=== PATIENT | female | born 1975 | race Caucasian/White ===

== ENCOUNTER 2016-09-13 17:50 | Emergency (ER) | payer MEDICARE, MEDICAID ==
--- NOTE | 2016-09-13 19:13 | ERRECORD ---
[facility] EMERGENCY RECORD PAST MEDICAL HISTORY (18:00 SFRE) MEDICAL HISTORY: Notes: RECENT DX OF PITUITARY TUMOR., HEP C, Past medical history includes pulmonary disease, chronic bronchitis. FEMALE SURGICAL HISTORY: SURGERIES: CLEFT PALATE REPAIRS, RIGHT INGUINAL HERNIA REPAIR, 3 C-SECTIONS, 3 D<LT>AMP>C'S X 2, LAP-YARIEL, BILAT TUBAL LIGATION, RIGHT ROTATOR CUFF REPAIR. PSYCHIATRIC HISTORY: Psychiatric history includes previous inpatient psychiatric admissions, Date of last admission: 2007, Facility: [facility], Notes: ADHD, BIPOLAR WITH PSYCHOSIS, ANXIETY, BORDERLINE PERSONALITY DISORDER, ANTISOCIAL DISORDER. SOCIAL HISTORY: Patient denies alcohol use, Patient is a former drug user, abused cocaine, Patient currently uses tobacco, smokes cigarettes, daily, Patient has smoked for 25 years, Patient smokes 1/2 packs per day, Lives at home, alone. KNOWN ALLERGIES Penicillins Sulfa (Sulfonamide Antibiotics): - Entered category: Sulfa (Sulfonamide Antibiotics) -- Entered category: Sulfa (Sulfonamide Antibiotics) -- Entered category: Sulfa (Sulfonamide Antibiotics) -- Entered category: Sulfa (Sulfonamide Antibiotics) -- Entered category: Sulfa (Sulfonamide Antibi CURRENT MEDICATIONS (17:59 SFRE) Trilafon: TABLET : Strength - 2 mg : ORAL Patient Dose: 4 mg Oral once a day. clonazePAM: TABLET : Strength - 1 mg : ORAL Patient Dose: 1 tab(s) Oral 3 times a day. Abilify: TABLET : Strength - 15 mg : ORAL Patient Dose: 15 mg Oral 2 times a day. LaMICtal: TABLET : Strength - 200 mg : ORAL Patient Dose: 200 mg Oral 2 times a day. Adderall: TABLET : Strength - 30 mg : ORAL Patient Dose: 30 mg Oral 2 times a day. omeprazole: CAPSULE,DELAYED RELEASE (ENTERIC COATED) : Strength - 20 mg : ORAL Patient Dose: 40 mg Oral 2 times a day. [place]: TABLET : Strength - 10 mg-325 mg : ORAL Patient Dose: 1 tab(s) Oral 3 times a day. VITAL SIGNS (17:56 SFRE) VITAL SIGNS: BP: 130/92, Pulse: 100 (Regular), Resp: 18 &a-1R&a+25V*p+0X*j6863Q*c202B*c15G*c2P*p-0X&a-25V&a+1R Name: Isabel Pete : 1975 F41 MedRec: [id number] AcctNum: [id number] Prepared: MonSep 13, 2016 20:56 by Interface Page 1 of 2 pMD [facility] EMERGENCY RECORD (Non-Labored), Temp: 98.7 (Tympanic), Pain: 8 (Pressure), O2 sat: 100 on Room Air, Time: 09/13/2016 17:56. DOCTOR NOTES (18:42 ABUS) TEXT: Pt left the ER without being seen. I never saw the pt. We could not locate her when I tried to go see her. PROBLEM LIST No recorded problems DIAGNOSIS (19:07 ROBERTO) FINAL: PRIMARY: NONE. PRESCRIPTION No recorded prescriptions DISPOSITION (19:07 MDNAYELI) PATIENT: Disposition Type: Eloped, Disposition: Left Without Being Seen, Patient left the department. Brunson: ALVERTO=MD Ricky, Ezra MEJIA=WES Muro, Mariola RODRIGUEZ=WES Steele, Yareli &a-1R&a+25V*p+0X*[id number]*c202B*c15G*c2P*p-0X&a-25V&a+1R Name: Isabel Pete : 1975 F41 MedRec: [id number] AcctNum: [id number] Prepared: MonSep 13, 2016 20:56 by Interface Page 2 of 2 pMD MTDD
--- NOTE | 2016-09-13 19:20 | PICIS ---
[facility] EMERGENCY RECORD TRIAGE (MonSep 13, 2016 17:58 SFRE) TRIAGE NOTES: HAS PITUITARY GLAND TUMOR AND CAUSES ME HEADACHES AND MY DR WON'T LET ME TAKE IBPROFEN, TYLENOL, AND SHE CAN'T CANT TAKE T3. (MonSep 13, 2016 17:58 SFRE) PATIENT: NAME: Isabel Pete, AGE: 41, GENDER: female, : Mon1975, TIME OF GREET: MonSep 13, 2016 17:51, PREFERRED LANGUAGE: Lao, ETHNICITY: Not or , FALL RISK: NO, ECODE BILLING MAP: [facility], SSN: [id number], Zip Code: [address], KG WEIGHT: 65.77, PHONE: CELL, , , PERSON ID: [id number], PCP: DO Hastings Anthony. (MonSep 13, 2016 17:58 SFRE) COMPLAINT: HEADACHE. (MonSep 13, 2016 17:58 SFRE) ADMISSION: URGENCY: 4 Non Urgent, ADMISSION SOURCE: Home, TRANSPORT: Walk-in, BED: ED -03. (MonSep 13, 2016 17:58 SFRE) IMMUNIZATIONS: Flu vaccine not up to date. (18:00 SFRE) SIRS SCORING: Heart Rate 55-109 (0), Temp range 96.8-101.1 (0), respiratory rate 12-24 (0), Mental Status altered: no (0). (18:00 SFRE) TRIAGE SCREENING: Patient denies suicidal ideation, Patient denies presence of domestic violence. (18:00 SFRE) PROVIDERS: TRIAGE NURSE: Yareli Steele RN. (MonSep 13, 2016 17:58 SFRE) VITAL SIGNS: BP 130/92, Pulse 100, (Regular), Resp 18, (Non-Labored), Temp 98.7, (Tympanic), Pain 8, (Pressure), O2 Sat 100, on Room Air, Time 09/13/2016 17:56. (17:56 SFRE) PREVIOUS VISIT ALLERGIES: Penicillins, Sulfa (Sulfonamide Antibiotics). (MonSep 13, 2016 17:58 SFRE) Penicillins, Sulfa (Sulfonamide Antibiotics). (18:00 SFRE) KNOWN ALLERGIES Penicillins Sulfa (Sulfonamide Antibiotics): - Entered category: Sulfa (Sulfonamide Antibiotics) -- Entered category: Sulfa (Sulfonamide Antibiotics) -- Entered category: Sulfa (Sulfonamide Antibiotics) -- Entered category: Sulfa (Sulfonamide Antibiotics) -- Entered category: Sulfa (Sulfonamide Antibi CURRENT MEDICATIONS (17:59 SFRE) Trilafon: TABLET : Strength - 2 mg : ORAL Patient Dose: 4 mg Oral once a day. clonazePAM: TABLET : Strength - 1 mg : ORAL Patient Dose: 1 tab(s) Oral 3 times a day. Abilify: TABLET : Strength - 15 mg : ORAL Patient Dose: 15 mg Oral 2 times a day. LaMICtal: TABLET : Strength - 200 mg : ORAL Patient Dose: 200 mg Oral 2 times a day. &a-1R&a+25V*p+0X*l5519V*c202B*c15G*c2P*p-0X&a-25V&a+1R Name: Juan RIsabel Kimo : 1975 F41 MedRec: [id number] AcctNum: [id number] Prepared: tarsha Sep 13, 2016 21:03 by Interface Page 1 of 3 pMD [facility] EMERGENCY RECORD Adderall: TABLET : Strength - 30 mg : ORAL Patient Dose: 30 mg Oral 2 times a day. omeprazole: CAPSULE,DELAYED RELEASE (ENTERIC COATED) : Strength - 20 mg : ORAL Patient Dose: 40 mg Oral 2 times a day. [place]: TABLET : Strength - 10 mg-325 mg : ORAL Patient Dose: 1 tab(s) Oral 3 times a day. VITAL SIGNS (17:56 SFRE) VITAL SIGNS: BP: 130/92, Pulse: 100 (Regular), Resp: 18 (Non-Labored), Temp: 98.7 (Tympanic), Pain: 8 (Pressure), O2 sat: 100 on Room Air, Time: 09/13/2016 17:56. NURSING PROCEDURE: NURSE NOTES (18:46 SFRE) NURSES NOTES: Notes: PATIENT APPARENTLY LEFT AMA. PAST MEDICAL HISTORY (18:00 SFRE) MEDICAL HISTORY: Notes: RECENT DX OF PITUITARY TUMOR., HEP C, Past medical history includes pulmonary disease, chronic bronchitis. FEMALE SURGICAL HISTORY: SURGERIES: CLEFT PALATE REPAIRS, RIGHT INGUINAL HERNIA REPAIR, 3 C-SECTIONS, 3 D<LT>AMP>C'S X 2, LAP-YARIEL, BILAT TUBAL LIGATION, RIGHT ROTATOR CUFF REPAIR. PSYCHIATRIC HISTORY: Psychiatric history includes previous inpatient psychiatric admissions, Date of last admission: 2007, Facility: [facility], Notes: ADHD, BIPOLAR WITH PSYCHOSIS, ANXIETY, BORDERLINE PERSONALITY DISORDER, ANTISOCIAL DISORDER. SOCIAL HISTORY: Patient denies alcohol use, Patient is a former drug user, abused cocaine, Patient currently uses tobacco, smokes cigarettes, daily, Patient has smoked for 25 years, Patient smokes 1/2 packs per day, Lives at home, alone. EVENTS TRANSFER: Triage to Emergency Main ED -03. (MonSep 13, 2016 17:58 SFRE) Emergency Main ED -03 to -H01. (18:18 MDEB) Emergency Main ED -H01 to Holding. (18:48 SFRE) Emergency Main ED -H01 to Holding. (18:48 SFRE) Emergency Holding to Waiting. (18:48 SFRE) Removed from Emergency Waiting. (19:07 ROBERTO) DOCTOR NOTES (18:42 ABUS) TEXT: Pt left the ER without being seen. I never saw the pt. We could not locate her when I tried to go see her. PROBLEM LIST No recorded problems &a-1R&a+25V*p+0X*p7109Q*c202B*c15G*c2P*p-0X&a-25V&a+1R Name: Isabel Pete : 1975 F41 MedRec: [id number] AcctNum: [id number] Prepared: MonSep 13, 2016 21:03 by Interface Page 2 of 3 pMD [facility] EMERGENCY RECORD DIAGNOSIS (19:07 ROBERTO) FINAL: PRIMARY: NONE. DISPOSITION (19:07 ROBERTO) PATIENT: Disposition Type: Eloped, Disposition: Left Without Being Seen, Patient left the department. PRESCRIPTION No recorded prescriptions IMAGING (19:52 ADEA) *SUPPLY CHARGE SHEET: Image captured from scanner. ADMIN (20:50 ABUS) DIGITAL SIGNATURE: MD García Anthony. Brunson: ALVERTO=MD García Anthony ADEA=Darinel RN, Faisal MEJIA=WES Muro, Mariola RODRIGUEZ=WES Steele, Yareli &a-1R&a+25V*p+0X*z5607M*c202B*c15G*c2P*p-0X&a-25V&a+1R Name: Isabel Pete : 1975 F41 MedRec: [id number] AcctNum: [id number] Prepared: Jocelyn Sep 13, 2016 21:03 by Interface Page 3 of 3 pMD MTDD
== END 2016-09-13 18:15 | disposition left against medical advice (07) ==
LOC: MADERS 17:50
DX: Z53.21 Procedure and treatment not carried out due to patient leaving prior to being seen by health care provider (principal)

== ENCOUNTER 2016-12-02 10:51 | Emergency (ER) | payer MEDICARE, MEDICAID ==
[~2016-12-02 10:51] MED LIST: Donnatal Elixir 16.2 MG/5 ML UDCUP ONE
[2016-12-02] MEDS ORDERED: Lidocaine Viscous Sol 2% 15 ml UD Cup ONE (11:39)
[2016-12-02] MEDS ORDERED: Donnatal Elixir 16.2 MG/5 ML UDCUP ONE (11:39)
[2016-12-02] MEDS ORDERED: Mag-Al Plus 1200 MG/1200 MG/120 MG/30 ML UDCUP ONE (11:39)
[2016-12-02] MEDS ORDERED: Ondansetron ODT 4 MG TAB ONE (11:40)
== END 2016-12-02 12:55 | disposition home or self-care (01) ==
LOC: MADERS 10:51
DX: G44.209 Tension-type headache, unspecified, not intractable (principal); K21.9 Gastro-esophageal reflux disease without esophagitis; M26.609 Unspecified temporomandibular joint disorder, unspecified side; F31.9 Bipolar disorder, unspecified; F41.9 Anxiety disorder, unspecified; F90.9 Attention-deficit hyperactivity disorder, unspecified type; F17.210 Nicotine dependence, cigarettes, uncomplicated
CPT/HCPCS: 84484; 93005; Q0162

== ENCOUNTER 2016-12-17 15:31 | Emergency (ER) | payer MEDICARE, MEDICAID ==
[2016-12-17] MEDS ORDERED: Acetaminophen/Codeine 30-300mg Tablet ONE (16:05)
[2016-12-17] MEDS ORDERED: Mag-Al Plus 1200 MG/1200 MG/120 MG/30 ML UDCUP ONE (16:06)
[2016-12-17] MEDS ORDERED: Lidocaine Viscous Sol 2% 15 ml UD Cup ONE (16:06)
[2016-12-17] MEDS ORDERED: Donnatal Elixir 16.2 MG/5 ML UDCUP ONE (16:06)
[2016-12-17] MEDS ORDERED: Fluconazole 100 MG TAB ONE (16:06)
[2016-12-17] MEDS ORDERED: Ondansetron ODT 4 MG TAB ONE (16:06)
--- NOTE | 2016-12-17 16:30 | RAD ---
EXAM: RIGHT HAND THREE VIEWS: 12/17/16 HISTORY: Injury. Pain. COMPARISON: None. FINDINGS: There is a nondisplaced fracture involving the base of the fifth metacarpal. Joint spaces are prese rved. IMPRESSION: 1. Fracture involving the base of the fifth metacarpal. POS: [facility]
[2016-12-17 17:00] LABS: Prothrombin Time 13.9 SEC (12.0-14.7)
[2016-12-17 17:07] LABS: Amphetamine Not Detected (NotDetected); Barbiturates Screen Detected (NotDetected); Benzodiazepine Screen Not Detected (NotDetected); Cocaine Metabolite Screen Detected (NotDetected); Medtox Control Line Valid? VALID (VALID); Methadone Not Detected (NotDetected); Methamphetamine Not Detected (NotDetected); Opiate Screen Not Detected (NotDetected); Oxycodone Screen Not Detected (NotDetected); Phencyclidine (PCP) Not Detected (NotDetected); THC/Cannabinoid Screen Not Detected (NotDetected); Tricyclic Screen Not Detected (NotDetected)
[2016-12-17 17:09] LABS: #Lymphocytes 1.6 thou/uL (1.20-3.40); #Monocytes 0.5 thou/uL (0.11-0.59); #Neutrophils 5.5 thou/uL (1.40-6.50); %Basophils 0.5 % (0.0-1.0); %Eosinophils 0.1 % (0.0-10.0); %Lymphocytes 20.7 % (21.0-51.0); %Monocytes 6.9 % (0.0-10.0); %Neutrophils 71.8 % (42.0-75.0); Hemoglobin 11.2 g/dL (12.0-16.0); Mean Corpuscular HGB CONC 32.2 g/dL (32.0-36.0); Mean Corpuscular Hemoglobin 23.5 pg (27.0-31.0); Mean Corpuscular Volume 73.1 fl (81.0-99.0); Mean Platelet Volume 7.5 fL (7.4-10.4); Platelet Count 330 thou/uL (130-400); RBC Distribution Width 15.5 % (11.5-14.5); Red Blood Cell (RBC) Count 4.75 mill/uL (4.20-5.40); White Blood Cell (WBC) Count 7.7 thou/uL (4.8-10.8)
[2016-12-17 17:10] LABS: Alcohol Less than 10 mg/dL (Less than 10); Lipase 14 U/L (8-78); Salicylate Less than 5.0 mg/dL (15.0-30.0)
[2016-12-17 17:11] LABS: Anisocytosis MODERATE=16-30 cells (100X) (0-5/hpf); Hypochromia SLIGHT = 6-15 cells (100X) (0-5/hpf); Microcytosis MODERATE=15-30 cells (100X) (0-5/hpf)
[2016-12-17 17:12] LABS: ALT (SGPT) 38 U/L (0-55); AST (SGOT) 27 U/L (5-34); Albumin 4.5 g/dL (3.5-5.0); Alkaline Phosphatase 80 U/L (40-150); Anion Gap 15 mmol/L (10-20); BUN (Urea Nitrogen) 7 mg/dL (7.0-18.7); Bilirubin, Total 0.4 mg/dL (0.2-1.2); Calc. Creatinine Clearance 0 mL/min (70-130); Calcium 9.4 mg/dL (7.8-10.44); Carbon Dioxide 20 mmol/L (22-29); Chloride 109 mmol/L (98-107); Estimated GFR-MDRD 86; Globulin 2.5 g/dL (2.4-3.5); Glucose 116 mg/dL (70-105); Potassium 3.3 mmol/L (3.5-5.1); Sodium 141 mmol/L (136-145)
[2016-12-17] MEDS ORDERED: Ketorolac Tromethamine 60 MG/2 ML VIAL ONE (17:28)
[2016-12-17] MEDS ORDERED: Promethazine HCl 25 MG/ML VIAL ONE (17:28)
== END 2016-12-17 18:35 | disposition home or self-care (01) ==
LOC: MADERS 15:31
DX: S62.346A Nondisplaced fracture of base of fifth metacarpal bone, right hand, initial encounter for closed fracture (principal); N39.0 Urinary tract infection, site not specified; B37.3 Candidiasis of vulva and vagina; F17.210 Nicotine dependence, cigarettes, uncomplicated; Z79.899 Other long term (current) drug therapy; X58.XXXA Exposure to other specified factors, initial encounter
CPT/HCPCS: 36415; 51701; 80053; 80306; 80307; 83690; 85025; 85610; 87086; 96372; A4353; J1885; J2550; Q0162

== ENCOUNTER 2016-12-26 16:35 | Emergency (ER) | payer MEDICARE, MEDICAID | END 2016-12-26 18:15 | disposition left against medical advice (07) | LOC: MADERS 16:35 | DX: Z53.21 Procedure and treatment not carried out due to patient leaving prior to being seen by health care provider (principal) ==

== ENCOUNTER 2017-01-31 11:26 | Emergency (ER) | payer MEDICARE, MEDICAID | END 2017-01-31 12:50 | disposition home or self-care (01) | LOC: MADERS 11:26 | DX: J34.9 Unspecified disorder of nose and nasal sinuses (principal); F17.210 Nicotine dependence, cigarettes, uncomplicated | CPT/HCPCS: 99283 ==

== ENCOUNTER 2017-04-17 09:41 | Emergency (ER) | payer MEDICARE, OTHER ==
[2017-04-17 11:02] LABS: INR-International Normal Ratio 0.9; PTT 32.8 SEC (22.9-36.1); Prothrombin Time 12.1 SEC (12.0-14.7)
--- NOTE | 2017-04-17 11:07 | RAD ---
1 VIEW CHEST: Date: 04/17/17 COMPARISON: 06/18/05. HISTORY: Altered mental status. FINDINGS: Normal cardiac silhouette. Pulmonary vessels and hilum are normal. No masses or consolidation. No pn eumothorax or osseous abnormalities. IMPRESSION: No acute cardiopulmonary process. POS: [facility]
[2017-04-17 11:09] LABS: Bilirubin Negative (Negative); Blood, Urine Negative (Negative); Clarity Clear (Clear); Glucose, Urine (Dipstick) Negative (Negative); Leukocyte Negative (Negative); Nitrite Negative (Negative); Protein, Urine (Dipstick) Negative (Neg-Trace); Urobilinogen 0.2 mg/dL (0.2-1.0)
[2017-04-17 11:11] LABS: ALT (SGPT) 146 U/L (8-55); AST (SGOT) 57 U/L (5-34); Albumin 4.5 g/dL (3.5-5.0); Alkaline Phosphatase 86 U/L (40-150); Anion Gap 13 mmol/L (10-20); BUN (Urea Nitrogen) 17 mg/dL (7.0-18.7); Bilirubin, Total 0.3 mg/dL (0.2-1.2); Calc. Creatinine Clearance 0 mL/min (70-130); Calcium 9.9 mg/dL (7.8-10.44); Carbon Dioxide 23 mmol/L (22-29); Chloride 106 mmol/L (98-107); Estimated GFR-MDRD 83; Globulin 3.3 g/dL (2.4-3.5); Glucose 90 mg/dL (70-105); Potassium 4.1 mmol/L (3.5-5.1); Protein, Total 7.8 g/dL (6.0-8.3); Sodium 138 mmol/L (136-145)
[2017-04-17 11:12] LABS: Bacteria/HPF Rare-Few HPF (None Seen); RBC/HPF 0-3 HPF (0-3); WBC/HPF 0-3 HPF (0-3)
[2017-04-17 11:12] LABS: Acetaminophen Less than 6.0 mcg/mL (10.0-30.0); Alcohol Less than 10 mg/dL (Less than 10); Salicylate Less than 8.0 mg/dL (15.0-30.0)
[2017-04-17 11:12] LABS: #Basophils 0.1 thou/uL (0.0-0.2); #Lymphocytes 1.6 thou/uL (1.20-3.40); #Monocytes 0.4 thou/uL (0.11-0.59); %Basophils 1.1 % (0.0-1.0); %Eosinophils 0.1 % (0.0-10.0); %Lymphocytes 22.9 % (21.0-51.0); %Monocytes 5.2 % (0.0-10.0); %Neutrophils 70.8 % (42.0-75.0); Anisocytosis SLIGHT = 6-15 cells (100X) (0-5/hpf); Hemoglobin 14.1 g/dL (12.0-16.0); Large Platelets SLIGHT; MDiff Complete? YES; Mean Corpuscular HGB CONC 30.8 g/dL (32.0-36.0); Mean Corpuscular Hemoglobin 24.8 pg (27.0-31.0); Mean Corpuscular Volume 80.3 fl (81.0-99.0); Mean Platelet Volume 7.6 fL (7.4-10.4); PLT Morphology Comment Appears Adequate; Platelet Count 258 thou/uL (130-400); Red Blood Cell (RBC) Count 5.68 mill/uL (4.20-5.40); White Blood Cell (WBC) Count 7.1 thou/uL (4.8-10.8)
[2017-04-17 11:16] LABS: Cocaine Metabolite Screen Detected (NotDetected); Phencyclidine (PCP) Not Detected (NotDetected); THC/Cannabinoid Screen Not Detected (NotDetected)
[2017-04-17 11:17] LABS: Amphetamine Not Detected (NotDetected); Barbiturates Screen Not Detected (NotDetected); Benzodiazepine Screen Not Detected (NotDetected); Medtox Control Line Valid? VALID (VALID); Methadone Not Detected (NotDetected); Methamphetamine Not Detected (NotDetected); Opiate Screen Not Detected (NotDetected); Oxycodone Screen Not Detected (NotDetected); Tricyclic Screen Not Detected (NotDetected)
== END 2017-04-17 12:20 | disposition left against medical advice (07) ==
LOC: MADERS 09:41
DX: F22 Delusional disorders (principal); F90.9 Attention-deficit hyperactivity disorder, unspecified type; J42 Unspecified chronic bronchitis; F31.9 Bipolar disorder, unspecified; F41.9 Anxiety disorder, unspecified; F17.210 Nicotine dependence, cigarettes, uncomplicated
CPT/HCPCS: 36415; 71010; 80053; 80306; 80307; 81001; 83880; 84443; 85025; 85610; 85730; 87086; 93005

== ENCOUNTER 2017-05-14 13:50 | Emergency (ER) | payer MEDICARE, MEDICAID | END 2017-05-14 14:30 | disposition home or self-care (01) | LOC: MADERS 13:50 | DX: L03.317 Cellulitis of buttock (principal); F90.9 Attention-deficit hyperactivity disorder, unspecified type; F41.9 Anxiety disorder, unspecified; F31.9 Bipolar disorder, unspecified; F17.210 Nicotine dependence, cigarettes, uncomplicated; J42 Unspecified chronic bronchitis; Z79.899 Other long term (current) drug therapy | CPT/HCPCS: 99283 ==

== ENCOUNTER 2017-05-20 01:39 | Emergency (ER) | payer OTHER, MEDICARE, MEDICAID ==
[2017-05-20 02:40] LABS: BHCG - Serum Negative (NEGATIVE); Pregs Control Background? CLEAR/WHITE (CLR/WHITE); Pregs Control Bar Appear? YES (CONTROL BAR)
[2017-05-20 02:42] LABS: ALT (SGPT) 40 U/L (8-55); AST (SGOT) 21 U/L (5-34); Albumin 4.3 g/dL (3.5-5.0); Alkaline Phosphatase 93 U/L (40-150); Anion Gap 14 mmol/L (10-20); BUN (Urea Nitrogen) 12 mg/dL (7.0-18.7); Bilirubin, Total 0.4 mg/dL (0.2-1.2); Calc. Creatinine Clearance 0 mL/min (70-130); Calcium 9.4 mg/dL (7.8-10.44); Carbon Dioxide 24 mmol/L (22-29); Chloride 108 mmol/L (98-107); Estimated GFR-MDRD 83; Globulin 2.9 g/dL (2.4-3.5); Glucose 105 mg/dL (70-105); Lipase 15 U/L (8-78); Potassium 3.8 mmol/L (3.5-5.1); Protein, Total 7.2 g/dL (6.0-8.3); Sodium 142 mmol/L (136-145)
[2017-05-20 02:46] LABS: #Basophils 0.1 thou/uL (0.0-0.2); #Monocytes 0.4 thou/uL (0.11-0.59); #Neutrophils 6.1 thou/uL (1.40-6.50); %Basophils 0.7 % (0.0-1.0); %Eosinophils 0.1 % (0.0-10.0); %Lymphocytes 22.9 % (21.0-51.0); %Monocytes 5.2 % (0.0-10.0); %Neutrophils 71.1 % (42.0-75.0); Hemoglobin 13.3 g/dL (12.0-16.0); Mean Corpuscular HGB CONC 32.1 g/dL (32.0-36.0); Mean Corpuscular Hemoglobin 27.1 pg (27.0-31.0); Mean Corpuscular Volume 84.4 fl (81.0-99.0); Mean Platelet Volume 6.8 fL (7.4-10.4); Platelet Count 266 thou/uL (130-400); RBC Distribution Width 20.2 % (11.5-14.5); Red Blood Cell (RBC) Count 4.92 mill/uL (4.20-5.40); White Blood Cell (WBC) Count 8.6 thou/uL (4.8-10.8)
[2017-05-20 02:47] LABS: Anisocytosis SLIGHT = 6-15 cells (100X) (0-5/hpf); MDiff Complete? YES; Microcytosis SLIGHT = 6-15 cells (100X) (0-5/hpf); PLT Morphology Comment Appears Adequate; Poikilocytosis SLIGHT = 6-15 cells (100X) (0-5/hpf)
--- NOTE | 2017-05-20 08:44 | RAD ---
RADIOGRAPH CHEST 1 VIEW RADIOGRAPH ABDOMEN 2 VIEWS: HISTORY: 41-year-old female with abdominal pain. FINDINGS: There are no air space densities or pulmonary edema. The lateral costophrenic angles are sharp. Ther e is no cardiomegaly. There is no evidence of pneumothorax or pneumoperitoneum. There is no evidence of dilated small bowel loops, differential air/fluid levels, or organomegaly. IMPRESSION: 1. No acute cardiopulmonary findings. 2. No evidence of bowel obstruction. jn [] POS: [facility]
== END 2017-05-20 02:53 ==
LOC: MADERS 01:39
DX: R14.0 Abdominal distension (gaseous) (principal); R10.12 Left upper quadrant pain; F90.9 Attention-deficit hyperactivity disorder, unspecified type; F41.9 Anxiety disorder, unspecified; F31.9 Bipolar disorder, unspecified; F17.210 Nicotine dependence, cigarettes, uncomplicated; Z79.899 Other long term (current) drug therapy
CPT/HCPCS: 36415; 74022; 80053; 83690; 84703; 85025

== ENCOUNTER 2017-06-11 10:18 | Emergency (ER) | payer MEDICARE, MEDICAID ==
[2017-06-11] MEDS ORDERED: Azithromycin 250 MG TAB ONE (12:00)
[2017-06-11] MEDS ORDERED: Phenazopyridine HCl 97.5 MG TABLET ONE (12:00)
[2017-06-11] MEDS ORDERED: Fluconazole 100 MG TAB ONE (12:01)
== END 2017-06-11 12:03 | disposition home or self-care (01) ==
LOC: MADERS 10:18
DX: K04.7 Periapical abscess without sinus (principal); Z76.0 Encounter for issue of repeat prescription; F90.9 Attention-deficit hyperactivity disorder, unspecified type; F60.3 Borderline personality disorder; F31.9 Bipolar disorder, unspecified; F41.9 Anxiety disorder, unspecified; F17.210 Nicotine dependence, cigarettes, uncomplicated
CPT/HCPCS: 99283

== ENCOUNTER 2017-07-07 09:47 | Emergency (ER) | payer MEDICARE, MEDICAID ==
[2017-07-07] MEDS ORDERED: Ibuprofen 800 MG TAB ONE (10:37)
== END 2017-07-07 10:41 | disposition home or self-care (01) ==
LOC: MADERS 09:47
DX: M25.512 Pain in left shoulder (principal); F17.210 Nicotine dependence, cigarettes, uncomplicated; F31.9 Bipolar disorder, unspecified; F90.9 Attention-deficit hyperactivity disorder, unspecified type; F41.9 Anxiety disorder, unspecified; Z79.899 Other long term (current) drug therapy
CPT/HCPCS: 99283

== ENCOUNTER 2017-09-07 10:51 | Emergency (ER) | payer MEDICARE, OTHER ==
[~2017-09-07 10:51] MED LIST changes: -Donnatal Elixir 16.2 MG/5 ML UDCUP ONE; +Iopamidol 370 76% 100 ML VIAL ONE
[2017-09-07 13:21] LABS: #Basophils 0.1 thou/uL (0.0-0.2); #Lymphocytes 1.5 thou/uL (1.20-3.40); #Monocytes 0.4 thou/uL (0.11-0.59); #Neutrophils 3.3 thou/uL (1.40-6.50); %Basophils 1.4 % (0.0-1.0); %Lymphocytes 28.7 % (21.0-51.0); %Monocytes 7.6 % (0.0-10.0); %Neutrophils 62.3 % (42.0-75.0); Hemoglobin 13.2 g/dL (12.0-16.0); Mean Corpuscular HGB CONC 31.9 g/dL (32.0-36.0); Mean Corpuscular Hemoglobin 29.6 pg (27.0-31.0); Mean Corpuscular Volume 92.7 fl (81.0-99.0); Mean Platelet Volume 6.7 fL (7.4-10.4); Platelet Count 249 thou/uL (130-400); RBC Distribution Width 12.8 % (11.5-14.5); Red Blood Cell (RBC) Count 4.46 mill/uL (4.20-5.40); White Blood Cell (WBC) Count 5.3 thou/uL (4.8-10.8)
[2017-09-07] MEDS ORDERED: Ketorolac Tromethamine 30 MG/ML VIAL ONE (13:36)
[2017-09-07] MEDS ORDERED: Ondansetron HCl/PF 4 MG/2 ML Vial ONE (13:36)
[2017-09-07 13:43] LABS: ALT (SGPT) 68 U/L (8-55); AST (SGOT) 42 U/L (5-34); Alkaline Phosphatase 161 U/L (40-150); Anion Gap 13 mmol/L (10-20); BUN (Urea Nitrogen) 17 mg/dL (7.0-18.7); Bilirubin, Total 0.2 mg/dL (0.2-1.2); Calc. Creatinine Clearance 0 mL/min (70-130); Calcium 8.8 mg/dL (7.8-10.44); Carbon Dioxide 25 mmol/L (22-29); Chloride 107 mmol/L (98-107); Estimated GFR-MDRD 74; Globulin 2.8 g/dL (2.4-3.5); Glucose 82 mg/dL (70-105); Lipase 47 U/L (8-78); Potassium 4.8 mmol/L (3.5-5.1); Protein, Total 6.8 g/dL (6.0-8.3); Sodium 140 mmol/L (136-145)
[2017-09-07 15:09] LABS: Bilirubin Negative (Negative); Blood, Urine Negative (Negative); Clarity Clear (Clear); Glucose, Urine (Dipstick) Negative (Negative); Leukocyte Negative (Negative); Nitrite Negative (Negative); Protein, Urine (Dipstick) Negative (Neg-Trace); Specific Gravity, Urine 1.015 (1.005-1.030); Urobilinogen 0.2 mg/dL (0.2-1.0); pH, Urine 7.5 (5.0-9.0)
[2017-09-07 15:15] LABS: Bacteria/HPF Rare-Few HPF (None Seen); RBC/HPF None Seen HPF (0-3); Squamous Epithelial 0-3 HPF (0-3); WBC/HPF None Seen HPF (0-3)
[2017-09-07 15:16] LABS: Crystals/HPF RARE AMORPH PHOS HPF (Negative)
--- NOTE | 2017-09-07 15:22 | CT ---
CT ABDOMEN AND PELVIS WITH CONTRAST: History: Mid upper abdominal pain. No bowel movement x 3 weeks. Comparison: CT abdomen 03-03-09. FINDINGS: Lung bases are clear. No pericardial effusion. There is extensive debris throughout the stomach. This debris has interval gas within it although it is laying peripherally with contrast. Contrast is seen throughout the small bowel. The urinary bladder is markedly distended. Small volume free fluid in the pelvis. Clip is seen along the expected location of the right fallopian tube. A clip is also seen in the expected location of th e cecum. The appendix is felt to be visualized. No dilated loops of large or small bowel. Aortoiliac contour is normal. Prior cholecystectomy. The li roosevelt and spleen are unremarkable. Pancreas is unremarkable. Skeleton unremarkable. 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 IMPRESSION: 1. Extensive debris within the stomach. Recommend correlation for ingested non-food material. 2. No evidence of small or large bowel obstruction. 3. Small layering free fluid in the pelvis may be physiologic. 4. Clip along the right fallopian tube and along the cecum. The appendix is felt to be visualized. Th is may represent an atopic fallopian closure device. Recommend correlation with history. 5. No acute inflammatory abnormality in the abdomen or pelvis. POS: [facility]
== END 2017-09-07 17:10 | disposition home or self-care (01) ==
LOC: MADERS 10:51
DX: K31.89 Other diseases of stomach and duodenum (principal); F90.9 Attention-deficit hyperactivity disorder, unspecified type; F31.9 Bipolar disorder, unspecified; F41.9 Anxiety disorder, unspecified; F60.3 Borderline personality disorder; F17.210 Nicotine dependence, cigarettes, uncomplicated; Z79.899 Other long term (current) drug therapy
CPT/HCPCS: 36415; 74177; 80053; 81001; 82150; 83605; 83690; 85025; 85652; 87086; 96374; 96375; J1885; J2405

== ENCOUNTER → 2017-12-20 | Emergency (ER) | payer MEDICARE, OTHER ==
[~2017-12-20] MED LIST changes: +HYDROcodone/Acetaminophen 10/325 mg Tablet ONE; -Iopamidol 370 76% 100 ML VIAL ONE; +Naproxen 500 MG TAB ONE
== END ==
LOC: MADERS 17:01
DX: R10.11 Right upper quadrant pain (principal); R10.816 Epigastric abdominal tenderness; F17.210 Nicotine dependence, cigarettes, uncomplicated; F31.9 Bipolar disorder, unspecified; F90.9 Attention-deficit hyperactivity disorder, unspecified type; F41.9 Anxiety disorder, unspecified; K74.60 Unspecified cirrhosis of liver; K25.9 Gastric ulcer, unspecified as acute or chronic, without hemorrhage or perforation; Z79.899 Other long term (current) drug therapy; Z86.19 Personal history of other infectious and parasitic diseases
CPT/HCPCS: 99283

== ENCOUNTER 2018-06-11 12:52 | Emergency (ER) | payer MEDICARE, MEDICAID ==
[2018-06-11] MEDS ORDERED: Promethazine HCl 25 MG/ML VIAL ONE (13:16)
== END 2018-06-11 13:35 | disposition home or self-care (01) ==
LOC: MADERS 12:52
DX: K52.9 Noninfective gastroenteritis and colitis, unspecified (principal); F90.9 Attention-deficit hyperactivity disorder, unspecified type; F31.9 Bipolar disorder, unspecified; F41.9 Anxiety disorder, unspecified; F60.3 Borderline personality disorder; F17.210 Nicotine dependence, cigarettes, uncomplicated; Z79.899 Other long term (current) drug therapy
CPT/HCPCS: 96372; J2550

== ENCOUNTER 2018-08-09 11:52 | Emergency (ER) | payer MEDICARE, MEDICAID ==
--- NOTE | 2018-08-09 12:57 | RAD ---
RADIOGRAPH CHEST 1 VIEW: HISTORY: A 43-year-old female with cough. FINDINGS: The visualized lung cotter are clear. The cardiomediastinal silhouette and hilar shadows are normal. The lateral costophrenic angles are sharp. The osseous structures appear normal. There is no pneu mothorax. IMPRESSION: Negative. jn [] POS: [facility]
[2018-08-09 13:28] LABS: INR-International Normal Ratio 0.9; PTT 35.3 SEC (22.9-36.1); Prothrombin Time 12.5 SEC (12.0-14.7)
[2018-08-09 13:36] LABS: #Basophils 0.1 thou/uL (0.0-0.2); #Lymphocytes 2.4 thou/uL (1.20-3.40); #Monocytes 0.7 thou/uL (0.11-0.59); #Neutrophils 5.2 thou/uL (1.40-6.50); %Basophils 1.7 % (0.0-1.0); %Lymphocytes 28.7 % (21.0-51.0); %Neutrophils 61.5 % (42.0-75.0); MDiff Complete? YES; Mean Corpuscular HGB CONC 30.2 g/dL (32.0-36.0); Mean Corpuscular Hemoglobin 21.8 pg (27.0-31.0); Mean Corpuscular Volume 72.1 fL (78.0-98.0); Mean Platelet Volume 5.8 fL (7.4-10.4); Microcytosis SLIGHT = 6-15 cells (100X) (0-5/hpf); Platelet Count 406 thou/uL (130-400); RBC Distribution Width 15.5 % (11.5-14.5); Red Blood Cell (RBC) Count 5.05 mill/uL (4.20-5.40); White Blood Cell (WBC) Count 8.4 thou/uL (4.8-10.8)
[2018-08-09 13:39] LABS: ALT (SGPT) 33 U/L (8-55); AST (SGOT) 35 U/L (5-34); Albumin 4.3 g/dL (3.5-5.0); Alkaline Phosphatase 103 U/L (40-150); Anion Gap 16 mmol/L (10-20); BUN (Urea Nitrogen) 12 mg/dL (7.0-18.7); Bilirubin, Total 0.3 mg/dL (0.2-1.2); CK (CPK) 65 U/L (29-168); Calc. Creatinine Clearance 0 mL/min (70-130); Calcium 9.2 mg/dL (7.8-10.44); Carbon Dioxide 22 mmol/L (22-29); Chloride 103 mmol/L (98-107); Estimated GFR-MDRD 79; Glucose 95 mg/dL (70-105); Potassium 3.9 mmol/L (3.5-5.1); Protein, Total 7.3 g/dL (6.0-8.3); Sodium 137 mmol/L (136-145)
== END 2018-08-09 14:00 | disposition short-term general hospital (02) ==
LOC: MADERS 11:52
DX: R20.0 Anesthesia of skin (principal); R53.1 Weakness; F31.9 Bipolar disorder, unspecified; F90.9 Attention-deficit hyperactivity disorder, unspecified type; F41.9 Anxiety disorder, unspecified; F17.210 Nicotine dependence, cigarettes, uncomplicated; Z79.899 Other long term (current) drug therapy
CPT/HCPCS: 71045; 80053; 82550; 85025; 85610; 85730; 93005

== ENCOUNTER 2018-08-12 10:37 | Emergency (ER) | payer MEDICARE, OTHER ==
[2018-08-12] MEDS ORDERED: Ibuprofen 800 MG TAB ONE (11:43)
--- NOTE | 2018-08-12 12:05 | RAD ---
RIGHT FOOT 3 VIEWS: Date: 08/12/18 HISTORY: Injury, right foot pain. FINDINGS/IMPRESSION: No fracture or dislocation is seen. POS: [facility]
== END 2018-08-12 12:00 | disposition home or self-care (01) ==
LOC: MADERS 10:37
DX: S93.601A Unspecified sprain of right foot, initial encounter (principal); F90.9 Attention-deficit hyperactivity disorder, unspecified type; F31.9 Bipolar disorder, unspecified; F41.9 Anxiety disorder, unspecified; F17.210 Nicotine dependence, cigarettes, uncomplicated; Z79.899 Other long term (current) drug therapy; W19.XXXA Unspecified fall, initial encounter

== ENCOUNTER 2018-12-10 15:13 | Emergency (ER) | payer MEDICARE, MEDICAID | END 2018-12-10 16:45 | disposition home or self-care (01) | LOC: MADERS 15:13 | DX: M25.562 Pain in left knee (principal); F90.9 Attention-deficit hyperactivity disorder, unspecified type; J42 Unspecified chronic bronchitis; F31.9 Bipolar disorder, unspecified; F60.3 Borderline personality disorder; F17.210 Nicotine dependence, cigarettes, uncomplicated; Z79.1 Long term (current) use of non-steroidal anti-inflammatories (NSAID); Z79.899 Other long term (current) drug therapy | CPT/HCPCS: 99282 ==

== ENCOUNTER 2019-08-21 07:27 | Emergency (ER) | payer MEDICARE, OTHER ==
[2019-08-21] MEDS ORDERED: predniSONE 20 MG TAB ONE (08:30)
--- NOTE | 2019-08-21 08:41 | RAD ---
EXAM: Chest 2 views: HISTORY: Cough COMPARISON: 01/21/2016 FINDINGS: There is a normal-sized cardiomediastinal silhouette. There is no evidence of consolidation, mass, or pleural effusion. The bones are unremarkable. IMPRESSION: No evidence of acute cardiopulmonary disease
[2019-08-21] MEDS ORDERED: Sodium Chloride 0.9% 1,000 ML ONE ×2 (09:38→11:20)
[2019-08-21 10:19] LABS: Anisocytosis SLIGHT = 6-15 cells (100X) (0-5/hpf); Band 10 % (5-11); Eosinophils 1 % (0-10); Hemoglobin 10.7 g/dL (12.0-16.0); Hypochromia MODERATE=16-30 cells (100X) (0-5/hpf); Lymphocytes 4 % (21-51); MDiff Complete? YES; Mean Corpuscular HGB CONC 28.8 g/dL (32.0-36.0); Mean Corpuscular Volume 69.3 fL (78.0-98.0); Mean Platelet Volume 7.6 fL (7.4-10.4); Microcytosis SLIGHT = 6-15 cells (100X) (0-5/hpf); Monocytes 6 % (0-10); Neutrophil 77 % (42-75); Platelet Count 273 thou/uL (130-400); Platelet Morphology Comment Appears Adequate; RBC Distribution Width 16.2 % (11.5-14.5); Red Blood Cell (RBC) Count 5.37 mill/uL (4.20-5.40); White Blood Cell (WBC) Count 17.4 thou/uL (4.8-10.8)
[2019-08-21 10:27] LABS: Anion Gap 18 mmol/L (10-20); BUN (Urea Nitrogen) 13 mg/dL (7.0-18.7); Calc. Creatinine Clearance 0 mL/min (70-130); Carbon Dioxide 17 mmol/L (22-29); Chloride 107 mmol/L (98-107); Estimated GFR-MDRD 72; Glucose 129 mg/dL (70-105); Potassium 3.3 mmol/L (3.5-5.1); Sodium 139 mmol/L (136-145)
[2019-08-21] MEDS ORDERED: cefTRIAXone\\ROCEPHIN 1 GM VIAL ONE (10:48)
[2019-08-21] MEDS ORDERED: Azithromycin 500 MG VIAL ONE (10:48)
[2019-08-21] MEDS ORDERED: Oseltamivir 75 MG CAP ONE (10:48)
[2019-08-21] MEDS ORDERED: Sodium Chloride 0.9% 250 ML 250 ML ONE (10:49)
[2019-08-21] MEDS ORDERED: Sodium Chloride 0.9% 100 ML ONE (10:49)
[2019-08-21 11:41] LABS: Bilirubin Negative (Negative); Blood, Urine Negative (Negative); Clarity Cloudy (Clear); Glucose, Urine (Dipstick) Negative (Negative); Leukocyte Small (Negative); Nitrite Positive (Negative); Protein, Urine (Dipstick) 30 mg/dL (Neg-Trace)
[2019-08-21 11:42] LABS: Bacteria/HPF 4+ HPF (None Seen); RBC/HPF 0-3 HPF (0-3); WBC/HPF 21-50 HPF (0-3)
== END 2019-08-21 14:30 | disposition left against medical advice (07) ==
LOC: MADERS 07:27
DX: A41.9 Sepsis, unspecified organism (principal); J18.9 Pneumonia, unspecified organism; J42 Unspecified chronic bronchitis; F90.9 Attention-deficit hyperactivity disorder, unspecified type; F31.9 Bipolar disorder, unspecified; F41.9 Anxiety disorder, unspecified; F60.3 Borderline personality disorder; F60.2 Antisocial personality disorder; F17.210 Nicotine dependence, cigarettes, uncomplicated; Z79.899 Other long term (current) drug therapy
CPT/HCPCS: 36415; 71046; 80048; 81003; 81015; 83605; 85025; 87040; 87077; 87086; 87186; 87804; 93005; 96361; 96365; 96367; J0456; J0696; J3490; J7050; J7512; J7620

== ENCOUNTER 2019-11-09 05:50 | Emergency (ER) | payer MEDICARE, MEDICAID | END 2019-11-09 06:50 | disposition left against medical advice (07) | LOC: MADERS 05:50 | DX: L73.9 Follicular disorder, unspecified (principal); F90.9 Attention-deficit hyperactivity disorder, unspecified type; F31.9 Bipolar disorder, unspecified; F41.9 Anxiety disorder, unspecified; F17.210 Nicotine dependence, cigarettes, uncomplicated; Z79.899 Other long term (current) drug therapy | CPT/HCPCS: 99283 ==

== ENCOUNTER 2020-03-03 14:47 | Emergency (ER) | payer MEDICARE, OTHER | END 2020-03-03 15:23 | disposition home or self-care (01) | LOC: MADERS 14:47 | DX: S30.826A Blister (nonthermal) of unspecified external genital organs, female, initial encounter (principal); K74.60 Unspecified cirrhosis of liver; F90.9 Attention-deficit hyperactivity disorder, unspecified type; F31.9 Bipolar disorder, unspecified; F60.3 Borderline personality disorder; F17.210 Nicotine dependence, cigarettes, uncomplicated; Z79.899 Other long term (current) drug therapy; X58.XXXA Exposure to other specified factors, initial encounter | CPT/HCPCS: 99281 ==

== ENCOUNTER 2020-03-10 21:31 | Emergency (ER) | payer MEDICARE, OTHER ==
[2020-03-10] MEDS ORDERED: Ketorolac Tromethamine 30 MG/ML VIAL ONE (22:43)
[2020-03-10 22:55] LABS: Bilirubin Negative (Negative); Blood, Urine Large (Negative); Clarity Clear (Clear); Glucose, Urine (Dipstick) Negative (Negative); Ketone, Urine Negative (Negative); Leukocyte Negative (Negative); Nitrite Positive (Negative); Protein, Urine (Dipstick) 30 mg/dL (Neg-Trace)
[2020-03-10 22:59] LABS: ALT (SGPT) 29 U/L (8-55); AST (SGOT) 20 U/L (5-34); Albumin 3.9 g/dL (3.5-5.0); Alkaline Phosphatase 175 U/L (40-110); Anion Gap 18 mmol/L (10-20); BUN (Urea Nitrogen) 7 mg/dL (7.0-18.7); Bilirubin, Total 0.3 mg/dL (0.2-1.2); Calc. Creatinine Clearance 0 mL/min (70-130); Calcium 8.7 mg/dL (7.8-10.44); Carbon Dioxide 25 mmol/L (22-29); Chloride 101 mmol/L (98-107); Estimated GFR-MDRD Greater than 90; Globulin 2.9 g/dL (2.4-3.5); Glucose 108 mg/dL (70-105); Protein, Total 6.8 g/dL (6.0-8.3); Sodium 141 mmol/L (136-145)
[2020-03-10 23:00] LABS: Pregnancy Test - Urine (BHCG) Negative (Negative); Pregu Control Background? CLEAR/WHITE (CLR/WHITE); Pregu Control Bar Appear? YES (CONTROL BAR)
[2020-03-10 23:02] LABS: Bacteria/HPF 3+ HPF (None Seen); Cocaine Metabolite Screen Not Detected (NotDetected); Phencyclidine (PCP) Not Detected (NotDetected); Squamous Epithelial 0-3 HPF (0-3); THC/Cannabinoid Screen Not Detected (NotDetected)
[2020-03-10 23:03] LABS: Amphetamine Not Detected (NotDetected); Barbiturates Screen Not Detected (NotDetected); Benzodiazepine Screen Not Detected (NotDetected); Medtox Control Line Valid? VALID (VALID); Methadone Not Detected (NotDetected); Methamphetamine Detected (NotDetected); Opiate Screen Not Detected (NotDetected); Oxycodone Screen Not Detected (NotDetected); Tricyclic Screen Not Detected (NotDetected)
[2020-03-10 23:07] LABS: Potassium 2.9 mmol/L (3.5-5.1)
[2020-03-10 23:13] LABS: #Basophils 0.1 thou/uL (0.0-0.2); #Lymphocytes 1.2 thou/uL (1.20-3.40); #Neutrophils 11.4 thou/uL (1.40-6.50); %Lymphocytes 8.6 % (21.0-51.0); %Monocytes 7.5 % (0.0-10.0); %Neutrophils 82.9 % (42.0-75.0); Anisocytosis SLIGHT = 6-15 cells (100X) (0-5/hpf); Band 1 % (5-11); Hemoglobin 10.8 g/dL (12.0-16.0); Hypochromia SLIGHT = 6-15 cells (100X) (0-5/hpf); Lymphocytes 10 % (21-51); MDiff Complete? YES; Mean Corpuscular HGB CONC 29.3 g/dL (32.0-36.0); Mean Corpuscular Volume 71.6 fL (78.0-98.0); Mean Platelet Volume 6.8 fL (7.4-10.4); Microcytosis SLIGHT = 6-15 cells (100X) (0-5/hpf); Monocytes 5 % (0-10); Neutrophil 84 % (42-75); Platelet Count 390 thou/uL (130-400); RBC Distribution Width 16.8 % (11.5-14.5); Red Blood Cell (RBC) Count 5.16 mill/uL (4.20-5.40); White Blood Cell (WBC) Count 13.7 thou/uL (4.8-10.8)
[2020-03-10] MEDS ORDERED: Potassium Chloride 20 MEQ TAB ONE (23:17)
[2020-03-10] MEDS ORDERED: Ciprofloxacin 500 MG TAB ONE (23:38)
== END 2020-03-10 23:43 | disposition home or self-care (01) ==
LOC: MADERS 21:31
DX: N10 Acute pyelonephritis (principal); E87.6 Hypokalemia; J42 Unspecified chronic bronchitis; K74.60 Unspecified cirrhosis of liver; F31.9 Bipolar disorder, unspecified; F90.9 Attention-deficit hyperactivity disorder, unspecified type; F29 Unspecified psychosis not due to a substance or known physiological condition; F41.9 Anxiety disorder, unspecified; F60.3 Borderline personality disorder; F17.210 Nicotine dependence, cigarettes, uncomplicated
CPT/HCPCS: 80053; 80306; 81003; 81015; 81025; 85025; 93005; 96374; J1885

== ENCOUNTER 2020-03-13 15:13 | Emergency (ER) | payer MEDICARE, OTHER ==
[~2020-03-13 15:13] MED LIST changes: -HYDROcodone/Acetaminophen 10/325 mg Tablet ONE; +Iopamidol 370 76% 100 ML VIAL ONE; -Naproxen 500 MG TAB ONE; +Sodium Chloride 0.9% 1,000 ML BAG ONE
[2020-03-13] MEDS ORDERED: Ketorolac Tromethamine 30 MG/ML VIAL ONE (15:46)
[2020-03-13 16:29] LABS: ALT (SGPT) 13 U/L (8-55); AST (SGOT) 14 U/L (5-34); Albumin 3.4 g/dL (3.5-5.0); Alkaline Phosphatase 119 U/L (40-110); Anion Gap 13 mmol/L (10-20); BUN (Urea Nitrogen) 7 mg/dL (7.0-18.7); Bilirubin, Total 0.2 mg/dL (0.2-1.2); CRP (Inflammatory) 11.65 mg/dL (= or < 0.5); Calc. Creatinine Clearance 0 mL/min (70-130); Calcium 8.4 mg/dL (7.8-10.44); Carbon Dioxide 25 mmol/L (22-29); Chloride 104 mmol/L (98-107); Estimated GFR-MDRD Greater than 90; Globulin 3.2 g/dL (2.4-3.5); Glucose 99 mg/dL (70-105); Lipase 9 U/L (8-78); Potassium 3.1 mmol/L (3.5-5.1); Protein, Total 6.6 g/dL (6.0-8.3); Sodium 139 mmol/L (136-145)
[2020-03-13 16:42] LABS: #Basophils 0.1 thou/uL (0.0-0.2); #Lymphocytes 2.1 thou/uL (1.20-3.40); #Monocytes 0.8 thou/uL (0.11-0.59); #Neutrophils 9.9 thou/uL (1.40-6.50); %Basophils 0.9 % (0.0-1.0); %Monocytes 6.3 % (0.0-10.0); %Neutrophils 76.8 % (42.0-75.0); Anisocytosis SLIGHT = 6-15 cells (100X) (0-5/hpf); Burr Cells SLIGHT = 2-5 cells (100X) (0-1/hpf); Hemoglobin 9.3 g/dL (12.0-16.0); Hypochromia MODERATE=16-30 cells (100X) (0-5/hpf); MDiff Complete? YES; Mean Corpuscular Hemoglobin 21.7 pg (27.0-31.0); Mean Corpuscular Volume 70.1 fL (78.0-98.0); Mean Platelet Volume 6.4 fL (7.4-10.4); Microcytosis SLIGHT = 6-15 cells (100X) (0-5/hpf); Platelet Count 402 thou/uL (130-400); Platelet Morphology Comment Appears Increased; RBC Distribution Width 16.8 % (11.5-14.5); Red Blood Cell (RBC) Count 4.28 mill/uL (4.20-5.40); White Blood Cell (WBC) Count 12.9 thou/uL (4.8-10.8)
[2020-03-13] MEDS ORDERED: Potassium Chloride 20 MEQ TAB ONE (16:56)
[2020-03-13 17:15] LABS: Bilirubin Negative (Negative); Blood, Urine Negative (Negative); Glucose, Urine (Dipstick) Negative (Negative); Ketone, Urine Negative (Negative); Leukocyte Small (Negative); Nitrite Negative (Negative); Protein, Urine (Dipstick) Negative (Neg-Trace); Urobilinogen 0.2 mg/dL (Less than 2)
[2020-03-13 17:17] LABS: Bacteria/HPF 2+ HPF (None Seen); Clarity Hazy (Clear); RBC/HPF 0-3 HPF (0-3)
[2020-03-13 17:18] LABS: Pregnancy Test - Urine (BHCG) Negative (Negative); Pregu Control Background? CLEAR/WHITE (CLR/WHITE); Pregu Control Bar Appear? YES (CONTROL BAR)
[2020-03-13 17:22] LABS: Amphetamine Not Detected (NotDetected); Barbiturates Screen Not Detected (NotDetected); Benzodiazepine Screen Not Detected (NotDetected); Cocaine Metabolite Screen Not Detected (NotDetected); Medtox Control Line Valid? VALID (VALID); Methadone Not Detected (NotDetected); Methamphetamine Not Detected (NotDetected); Opiate Screen Not Detected (NotDetected); Oxycodone Screen Not Detected (NotDetected); Phencyclidine (PCP) Not Detected (NotDetected); THC/Cannabinoid Screen Not Detected (NotDetected); Tricyclic Screen Not Detected (NotDetected)
--- NOTE | 2020-03-13 17:35 | CT ---
CT ABDOMEN AND PELVIS WITH IV CONTRAST: 03/13/20 Oral contrast was not administered. INDICATIONS: Abdominal pain. Comparison made to CT abdomen and pelvis 09/07/17. FINDINGS: The lung bases clear. Liver, spleen, pancreas unremarkable. Post cholecystectomy clips are noted. Stomach and duodenum unre markable. Adrenal glands normal. Kidneys unremarkable. Small bowel loops unremarkable. Appendix appears normal. Colon unremarkable. Aorta normal caliber. Images through the pelvis show a distended urinary bladder. Images through the pelvis reveal a new multicystic complex mass in the anterior left adnexal region p roducing mass effect on the uterus. This is measured at up to 8 cm craniocaudal on the sagittal plane x 5 cm width in the coronal plane. It measures up to 8 cm AP dimension in the axial plane. Ovarian n eoplasm would be the diagnosis of exclusion. Recommend ANIMAL CARE GIVER consultation. Uterus is deviated to the right due to mass effect. There are fallopian tube clips in the right adnex a, one of which was present on the prior exam. Osseous structures unremarkable. IMPRESSION: 1. 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 Ovarian neop lasm is the diagnosis of exclusion. Recommend ANIMAL CARE GIVER consultation. 2. Distended urinary bladder. POS: [facility]
== END 2020-03-13 17:50 | disposition home or self-care (01) ==
LOC: MADERS 15:13
DX: N83.202 Unspecified ovarian cyst, left side (principal); E87.6 Hypokalemia; K74.60 Unspecified cirrhosis of liver; F90.9 Attention-deficit hyperactivity disorder, unspecified type; J42 Unspecified chronic bronchitis; F31.9 Bipolar disorder, unspecified; F41.9 Anxiety disorder, unspecified; F60.3 Borderline personality disorder; F17.210 Nicotine dependence, cigarettes, uncomplicated; Z79.899 Other long term (current) drug therapy
CPT/HCPCS: 36415; 74177; 80053; 80306; 81003; 81015; 81025; 83605; 83690; 85025; 86140; 87040; 87086; J1885; J7050; Q9967

== ENCOUNTER 2020-03-21 10:38 | Emergency (ER) | payer MEDICARE, OTHER ==
[2020-03-21] MEDS ORDERED: Ondansetron PF 4 MG/2 ML Vial ONE (11:51)
[2020-03-21] MEDS ORDERED: Sodium Chloride 0.9% 1,000 ML ONE (11:52)
[2020-03-21] MEDS ORDERED: Ketorolac Tromethamine 30 MG/ML VIAL ONE (11:52)
[2020-03-21 12:10] LABS: #Lymphocytes 0.9 thou/uL (1.20-3.40); #Monocytes 0.6 thou/uL (0.11-0.59); #Neutrophils 17.9 thou/uL (1.40-6.50); %Basophils 0.2 % (0.0-1.0); %Lymphocytes 4.5 % (21.0-51.0); %Neutrophils 92.2 % (42.0-75.0); Anisocytosis SLIGHT = 6-15 cells (100X) (0-5/hpf); Hemoglobin 9.9 g/dL (12.0-16.0); Hypochromia SLIGHT = 6-15 cells (100X) (0-5/hpf); MDiff Complete? YES; Mean Corpuscular Hemoglobin 20.9 pg (27.0-31.0); Mean Corpuscular Volume 69.6 fL (78.0-98.0); Mean Platelet Volume 5.6 fL (7.4-10.4); Microcytosis SLIGHT = 6-15 cells (100X) (0-5/hpf); Platelet Count 767 thou/uL (130-400); Polychromasia SLIGHT = 2-3 cells (100X) (0-2/hpf); RBC Distribution Width 16.8 % (11.5-14.5); Red Blood Cell (RBC) Count 4.74 mill/uL (4.20-5.40); White Blood Cell (WBC) Count 19.4 thou/uL (4.8-10.8)
[2020-03-21 12:13] LABS: ALT (SGPT) 12 U/L (8-55); AST (SGOT) 12 U/L (5-34); Albumin 3.8 g/dL (3.5-5.0); Alkaline Phosphatase 118 U/L (40-110); Anion Gap 17 mmol/L (10-20); BUN (Urea Nitrogen) 13 mg/dL (7.0-18.7); Bilirubin, Total 0.5 mg/dL (0.2-1.2); Calc. Creatinine Clearance 0 mL/min (70-130); Carbon Dioxide 26 mmol/L (22-29); Chloride 102 mmol/L (98-107); Estimated GFR-MDRD 90; Globulin 3.8 g/dL (2.4-3.5); Glucose 122 mg/dL (70-105); Lipase 6 U/L (8-78); Protein, Total 7.6 g/dL (6.0-8.3); Sodium 142 mmol/L (136-145)
== END 2020-03-21 12:02 | disposition short-term general hospital (02) ==
LOC: MADERS 10:38
DX: N83.209 Unspecified ovarian cyst, unspecified side (principal); R11.2 Nausea with vomiting, unspecified; J42 Unspecified chronic bronchitis; K74.60 Unspecified cirrhosis of liver; F60.2 Antisocial personality disorder; F90.9 Attention-deficit hyperactivity disorder, unspecified type; F31.9 Bipolar disorder, unspecified; F41.9 Anxiety disorder, unspecified; F60.3 Borderline personality disorder; F17.210 Nicotine dependence, cigarettes, uncomplicated; F29 Unspecified psychosis not due to a substance or known physiological condition
CPT/HCPCS: 80053; 83605; 83690; 85025; 96374; 96375; J1885; J2405; J7050

== ENCOUNTER 2020-06-08 14:20 | Emergency (ER) | payer MEDICARE, OTHER ==
[2020-06-08 15:20] LABS: Bilirubin Negative (Negative); Blood, Urine Large (Negative); Clarity Clear (Clear); Glucose, Urine (Dipstick) Negative (Negative); Ketone, Urine Negative (Negative); Leukocyte Negative (Negative); Nitrite Negative (Negative); Protein, Urine (Dipstick) Negative (Neg-Trace); Specific Gravity, Urine 1.026 (1.002-1.036); Urobilinogen 0.2 mg/dL (Less than 2); pH, Urine 5.5 (5.0-9.0)
[2020-06-08 15:22] LABS: Pregnancy Test - Urine (BHCG) Negative (Negative); Pregu Control Background? CLEAR/WHITE (CLR/WHITE); Pregu Control Bar Appear? YES (CONTROL BAR); Specific Gravity 1.026 (1.002-1.036)
[2020-06-08 15:27] LABS: Amphetamine Not Detected (NotDetected); Bacteria/HPF Rare-Few HPF (None Seen); Barbiturates Screen Not Detected (NotDetected); Benzodiazepine Screen Not Detected (NotDetected); Cocaine Metabolite Screen Not Detected (NotDetected); Medtox Control Line Valid? VALID (VALID); Methadone Not Detected (NotDetected); Methamphetamine Not Detected (NotDetected); Opiate Screen Not Detected (NotDetected); Oxycodone Screen Not Detected (NotDetected); Phencyclidine (PCP) Not Detected (NotDetected); RBC/HPF 0-3 HPF (0-3); THC/Cannabinoid Screen Not Detected (NotDetected); Tricyclic Screen Not Detected (NotDetected); WBC/HPF 0-3 HPF (0-3)
[2020-06-08 15:47] LABS: Acetaminophen Less than 6.0 mcg/mL (10.0-30.0); Alcohol Less than 10 mg/dL (Less than 10); Salicylate Less than 8.0 mg/dL (15.0-30.0)
[2020-06-08 15:49] LABS: ALT (SGPT) 37 U/L (8-55); AST (SGOT) 26 U/L (5-34); Albumin 4.2 g/dL (3.5-5.0); Alkaline Phosphatase 86 U/L (40-110); Anion Gap 14 mmol/L (10-20); BUN (Urea Nitrogen) 19 mg/dL (7.0-18.7); Bilirubin, Total 0.2 mg/dL (0.2-1.2); CK (CPK) 54 U/L (29-168); Calc. Creatinine Clearance 0 mL/min (70-130); Calcium 8.8 mg/dL (7.8-10.44); Carbon Dioxide 23 mmol/L (22-29); Chloride 109 mmol/L (98-107); Estimated GFR-MDRD 86; Globulin 3.1 g/dL (2.4-3.5); Glucose 80 mg/dL (70-105); Potassium 4.1 mmol/L (3.5-5.1); Protein, Total 7.3 g/dL (6.0-8.3); Sodium 142 mmol/L (136-145)
[2020-06-08 15:51] LABS: #Basophils 0.1 thou/uL (0.0-0.2); #Lymphocytes 1.8 thou/uL (1.20-3.40); #Monocytes 0.5 thou/uL (0.11-0.59); %Basophils 0.9 % (0.0-1.0); %Eosinophils 0.1 % (0.0-10.0); %Lymphocytes 24.8 % (21.0-51.0); %Monocytes 6.4 % (0.0-10.0); %Neutrophils 67.9 % (42.0-75.0); Hemoglobin 10.4 g/dL (12.0-16.0); Mean Corpuscular HGB CONC 29.9 g/dL (32.0-36.0); Mean Corpuscular Hemoglobin 21.1 pg (27.0-31.0); Mean Corpuscular Volume 70.5 fL (78.0-98.0); Mean Platelet Volume 6.2 fL (7.4-10.4); Platelet Count 405 thou/uL (130-400); RBC Distribution Width 18.5 % (11.5-14.5); Red Blood Cell (RBC) Count 4.92 mill/uL (4.20-5.40); White Blood Cell (WBC) Count 7.4 thou/uL (4.8-10.8)
[2020-06-08 16:16] LABS: Anisocytosis MODERATE=16-30 cells (100X) (0-5/hpf); Hypochromia MODERATE=16-30 cells (100X) (0-5/hpf); Microcytosis SLIGHT = 6-15 cells (100X) (0-5/hpf); Platelet Morphology Comment Appears Decreased; Poikilocytosis SLIGHT = 6-15 cells (100X) (0-5/hpf); Polychromasia SLIGHT = 2-3 cells (100X) (0-2/hpf); Schistocytes SLIGHT = 2-5 cells (100X) (0-1/hpf); Tear Drops SLIGHT = 2-5 cells (100X) (0-1/hpf)
== END 2020-06-09 05:55 ==
LOC: MADERS 14:20
DX: F30.9 Manic episode, unspecified (principal); R44.3 Hallucinations, unspecified; B19.20 Unspecified viral hepatitis C without hepatic coma; J42 Unspecified chronic bronchitis; F17.210 Nicotine dependence, cigarettes, uncomplicated; Z79.899 Other long term (current) drug therapy
CPT/HCPCS: 36415; 80053; 80306; 80307; 81003; 81015; 81025; 82550; 84443; 85025; 99285

== ENCOUNTER 2020-12-27 14:10 | Emergency (ER) | payer MEDICAID, MEDICARE ==
[2020-12-28 15:10] LABS: SARS-CoV-2 PCR by NAA Not Detected (NotDetected)
== END 2020-12-27 14:30 | disposition home or self-care (01) ==
LOC: MADERS 14:10
DX: R45.1 Restlessness and agitation (principal); Z20.822 Contact with and (suspected) exposure to COVID-19; J42 Unspecified chronic bronchitis; K74.60 Unspecified cirrhosis of liver; F17.210 Nicotine dependence, cigarettes, uncomplicated; Z79.899 Other long term (current) drug therapy
CPT/HCPCS: 87635; 99284; U0003; U0005

== ENCOUNTER 2021-10-29 13:31 | Emergency (ER) | payer OTHER ==
[2021-10-29 16:08] LABS: ALT (SGPT) 72 U/L (8-55); AST (SGOT) 54 U/L (5-34); Albumin 4.4 g/dL (3.5-5.0); Alkaline Phosphatase 122 U/L (40-110); Anion Gap 18 mmol/L (10-20); BUN (Urea Nitrogen) 17 mg/dL (7.0-18.7); Bilirubin, Total 0.3 mg/dL (0.2-1.2); Calc. Creatinine Clearance 0 mL/min (70-130); Calcium 9.4 mg/dL (7.8-10.44); Carbon Dioxide 21 mmol/L (22-29); Chloride 104 mmol/L (98-107); Cholesterol 226 mg/dl (< 200 Desired); Globulin 3.5 g/dL (2.4-3.5); Glucose 113 mg/dL (70-105); HDL Cholesterol 57 mg/dL (>60 Neg Risk); LDL Cholesterol, Calculated 149 mg/dL; Potassium 4.9 mmol/L (3.5-5.1); Protein, Total 7.9 g/dL (6.0-8.3); Sodium 138 mmol/L (136-145); Triglycerides 101 mg/dL (Less than 150)
[2021-10-29 21:05] LABS: Hemoglobin A1c 5.1 % (4.0-6.0)
[2021-10-30 07:01] LABS: Follow-up Chemistry Comp? YES; Follow-up Result - Chemistry REPORT FAXED
== END 2021-10-29 14:34 | disposition home or self-care (01) ==
LOC: MADERS 13:31
DX: M19.171 Post-traumatic osteoarthritis, right ankle and foot (principal); F17.210 Nicotine dependence, cigarettes, uncomplicated
CPT/HCPCS: 36415; 80053; 80061; 83036

== ENCOUNTER 2021-11-03 19:46 | Outpatient (CLI) | payer OTHER | END 2021-11-03 19:47 | disposition home or self-care (01) | LOC: MADLAB 19:46 | PROVIDERS: ATTEND Family Medicine | DX: Z01.419 Encounter for gynecological examination (general) (routine) without abnormal findings (principal); N89.8 Other specified noninflammatory disorders of vagina | CPT/HCPCS: 87480; 87510; 87660; 88175 ==

== ENCOUNTER 2024-08-15 12:04 | Emergency (ER) | payer MEDICAID, OTHER, SELFPAY ==
[2024-08-15] MEDS ORDERED: Ondansetron PF 4 MG/2 ML Vial ONE (12:44)
[2024-08-15] MEDS ORDERED: Sodium Chloride 0.9% 1,000 ML ONE ×2 (12:44→14:05)
[2024-08-15] MEDS ORDERED: Ketorolac Tromethamine 30 MG (1 mL) VIAL ONE (12:44)
[2024-08-15 13:31] LABS: Hematocrit 50.3 % (36.0-47.0); Hemoglobin 15.2 g/dL (12.0-16.0); Mean Corpuscular HGB CONC 30.1 g/dL (32.0-36.0); Mean Corpuscular Hemoglobin 24.2 pg (27.0-31.0); Mean Corpuscular Volume 80.4 fl (78.0-98.0); Mean Platelet Volume 7.4 fL (7.4-10.4); Platelet Count 309 10x3/uL (130-400); RBC Distribution Width 14.5 % (11.5-14.5); Red Blood Cell (RBC) Count 6.26 mill/uL (4.20-5.40); White Blood Cell (WBC) Count 9.7 10x3/uL (4.8-10.8)
[2024-08-15 13:34] LABS: ALT (SGPT) 63 U/L (8-55); AST (SGOT) 43 U/L (5-34); Albumin 4.3 g/dL (3.5-5.0); Alkaline Phosphatase 175 U/L (40-110); Anion Gap 18 mmol/L (10-20); BUN (Urea Nitrogen) 16 mg/dL (7.0-18.7); Bilirubin, Total 0.7 mg/dL (0.2-1.2); Calc. Creatinine Clearance 0 mL/min (70-130); Calcium 9.5 mg/dL (7.8-10.44); Carbon Dioxide 20 mmol/L (22-29); Chloride 108 mmol/L (98-107); Estimated GFR 90; Globulin 3.7 g/dL (2.4-3.5); Glucose 129 mg/dL (70-105); Lipase 11 U/L (8-78); Potassium 3.6 mmol/L (3.5-5.1); Sodium 142 mmol/L (136-145)
[2024-08-15 13:51] LABS: Pregnancy Test - Urine (BHCG) Negative (Negative); Pregu Control Background? CLEAR/WHITE (CLR/WHITE); Pregu Control Bar Appear? YES (CONTROL BAR); Specific Gravity 1.032 (1.002-1.036)
[2024-08-15 13:52] LABS: Bilirubin Negative (Negative); Blood, Urine Negative (Negative); Clarity Clear (Clear); Glucose, Urine (Dipstick) Negative (Negative); Ketone, Urine Trace mg/dL (Negative); Leukocyte Negative (Negative); Nitrite Negative (Negative); Protein, Urine (Dipstick) 30 mg/dL (Neg-Trace); Urobilinogen 0.2 mg/dL (Less than 2); pH, Urine 5.5 (5.0-9.0)
[2024-08-15 13:53] LABS: CAUTI Indications for Culture Dysuria,urgency,freq; RBC/HPF 0-3 HPF (0-3); Specific Gravity, Urine 1.032 (1.002-1.036); Squamous Epithelial 0-3 HPF (0-3); WBC/HPF 0-3 HPF (0-3)
[2024-08-15 13:54] LABS: Bacteria/HPF Rare-Few HPF (None Seen)
[2024-08-15 13:55] LABS: Urine Culture Reflex No No
[2024-08-15 13:58] LABS: MDiff Complete? YES; Manual Diff?? YES
[2024-08-15 13:59] LABS: Anisocytosis SLIGHT = 6-15 cells (100X) (0-5/hpf); Band 4 % (5-11); Lymphocytes 4 % (21-51); Monocytes 2 % (0-10); Neutrophil 90 % (42-75); Platelet Adequacy Comment Appears Adequate
[2024-08-15 14:00] LABS: Amphetamine Detected (NotDetected); Barbiturates Screen Not Detected (NotDetected); Benzodiazepine Screen Not Detected (NotDetected); Cocaine Metabolite Screen Not Detected (NotDetected); Methadone Not Detected (NotDetected); Methamphetamine Detected (NotDetected); Opiate Screen Not Detected (NotDetected); Oxycodone Screen Not Detected (NotDetected); Phencyclidine (PCP) Not Detected (NotDetected); THC/Cannabinoid Screen Not Detected (NotDetected); Tricyclic Screen Not Detected (NotDetected)
== END 2024-08-15 15:00 | disposition home or self-care (01) ==
LOC: MADERS 12:04
DX: A08.4 Viral intestinal infection, unspecified (principal); F15.90 Other stimulant use, unspecified, uncomplicated; F17.210 Nicotine dependence, cigarettes, uncomplicated
CPT/HCPCS: 80053; 80306; 81001; 81025; 83690; 85025; 94760; 96361; 96374; 96375; J1885; J2405; J7030